=== PATIENT | male | born 1945 | race Caucasian/White ===

== ENCOUNTER 2025-05-13 09:07 | Emergency (ER) | payer MEDICARE, OTHER, SELFPAY ==
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
--- OUTSIDE RECORDS SUMMARY | 2025-05-13 09:19 | XMS_ITS | Clinical Summary ---
Author Organization [facility] Address [address], [facility] [address] [place] [address] Phone Care Team Providers Care Imaging Scheduler Name Role Phone David Tijerina MD Primary Care Provider [phone] Mayur Judge MD Unavailable [phone] Maged Goddard MD Unavailable [phone] Allergies Active Allergy Reactions Criticality Noted Date Comments Atorvastatin Other (see Comments) Low 04/28/2017 Leg aches Simvastatin Unknown Medium Medications HYDROcodone-acetam inophen (NORCO) 5-325 MG TabletIndications: Closed fracture of body of sternum, initial encounter Take 1-2 Tablets by mouth every 4 hours as needed for Moderate or more severe pain. 20 Tablet 09/18/20 23 Active Additional Information Patient not taking.Reported on 04/24/2025 tamsulosin (FLOMAX) 0.4 MG CapsuleIndications :BPH with obstruction/lower urinary tract symptoms TAKE 1 CAPSULE BY MOUTH EVERY DAY IN THE MORNING 90 Capsule 05/20/20 24 Active atorvastatin (LIPITOR) 10 MG TabletIndications: Mixed hyperlipidemia TAKE 1/2 TABLET BY MOUTH DAILY 45 Tablet 3 10/09/20 24 Active levETIRAcetam (KEPPRA) 500 MG Tablet TAKE 1 TABLET BY MOUTH TWICE A DAY 180 Tablet 1 02/22/20 25 Active Active Problems Problem Noted Date Diagnosed Date Seizure 04/24/2025 Insomnia 11/29/2022 Spinal stenosis of lumbar re gion without neurogenic claudication 05/02/2018 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 Arthritis Mixed hyperlipidemia Resolved Problems Problem Noted Date Diagnosed Date Resolved Date Primary osteoarthritis of right knee 08/16/2017 10/26/2017 Encounters Date Type Department Care Team Description 04/28/2025 Telephone [facility] [address] [place] [address] Maged Goddard MD 04/24/2025 11:30 AM CDT Office [facility] [address] [place] [address] Maged Goddard MD Seizure (HCC) (Primary Dx) Discharge Disposition: Discharged to home or Selfcare 04/23/2025 Travel 02/21/2025 Refill [facility] [address] [place] [address] Maged Goddard MD Medication Refill from Last 3 Months Immunizations Immunization Administration Dates Next Due COVID-19, MRNA, LNP-S, BIVAL ENT , PFIZER, 30 MCG/0.3 ML (12+ Y/O) 11/29/2022 Covid-19, Mrna, Lnp-s, Pf, 3 0 Mcg/0.3 Ml Dose (Pfizer) 02/02/2021,01/12/2021 Influenza Vaccine greater than 3 yrs 07/26/2021, 09/02/2019 Influenza Vaccine, Quadrivalent, PF 11/20/2018,0 07/27/2017 Influenza, High-dose, Quadrivalent 09/16/2022, Influenza, Quadrivalent, Adjuvanted 07/26/2023 Influenza, high-dose, trivalent, PF 09/17/2022,0 07/24/2020,08/15/2015 PUR FLU HIGH DOSE (FLUZONE) 08/08/2016 Pneumococcal Vaccine - 13 Valent 04/28/2017 Pneumococcal Vaccine Adult - 23 Valent 8 TD VACCINE 06/06/2009 Family History Medical History Relation Name Comments Cancer Father No Known Problems Mother Relation Name Status Comments Father Mother Social History Tobacco Use Types Packs/Day Years Used Date Smoking Tobacco: Former Cigarettes 0 07/19/1960 - 07/19/1965 Smokeless Tobacco: Never Tobacco Cessation:Counseling Given: Not Answered Alcohol Use Standard Drinks/Week Comments No 0 (1 standard drink = 0.6 oz pur e alcohol) PHQ-2 Answer Date Recorded Total Score - Questions 1-9 0 11/07 Sex and Gender Information Value Date Recorded Sex Assigned at Not on file Legal Sex Male 7:46 PM CDT Gender Identity Not on file Sexual Orientation Not on file Last Filed Vital Signs Vital Sign Reading Time Taken Comments Blood Pressure 142/82 04/24/2025 11:29 AM CDT Pulse 85 04/24/2025 11:29 AM CDT Temperature 36.8 C (98.2 F) 04/24/2025 11:29 AM CDT Respiratory Rate 16 04/24/2025 11:29 AM CDT Oxygen Saturation 96% 04/24/2025 11:29 AM CDT Inhaled Oxygen Concentration - - Weight 98.5 kg (217 lb 3.2 oz) 04/24/2025 11:29 AM CDT Height 188 cm (6' 2) 04/24/2025 11:29 AM CDT Body Mass Index 27.89 04/24/2025 11:29 AM CDT Plan of Treatment Upcoming Encounters Date Type Department Care Team (Late st Contact Info) Description 04/23/2026 9:00 AM CDT Office Visit [facility] - [facility]rology [facility] [address] [place] [address] Maged Goddard MD [address] [place] [address] Health Maintenance Due Date Last Done Comments TdaP Immunization 1944 Zoster Immunization (1 of 2) 1994 Respiratory Syncytial Virus (RSV) Immunization (Adult) (1 - 1-dose 75+ series) 2019 SARS-COV-2 Immunization ( season) 2024 11/29/2022, 02/02/2021, 01/12/2021 Influenza Immunization (#1) 07/07/20252 , 09/17/2022, 09/16/2022, Additional history exists Pneumococcal Immunization (50+ years) Completed 05/08/2018, 04/28/2017 Pneumococcal Immunization Combined Discontinued 05/08/2018, 04/28/2017 Cologuard Discontinued 03/27/2020 Colorectal Cancer Screening Discontinued Hepatitis C Virus (HCV) Screening Completed 07/27/2023 Colonoscopy Discontinued Hepatitis B Immunization Aged Out No longer eligible based on patient's age to complete this topic Human Papillomavirus (HPV) Immunization Aged Out No longer eligible based on patient's age to complete this topic Immunochemical Fecal Occult Blood Discontinued Meningococcal Immunization (ACWY) Aged Out No longer eligible based on patient's age to complete this topic Rotavirus Immunization Aged Out No lo nger eligible based on patient's age to complete this topic Medical Devices Implanted Type Area Tubing Oiler Device Identifier Shelf Expiration Date Model / Serial / Lot Cement Bone Orthoset 1 40 Gm - [id number] Implanted:Qty: 2 on 08/16/2017 by Wilmer Seay MD at [facility] IMPLANT Right: [employer]nee [employer] [id number] / [id number] Patella Recess Sgl Post Hi Adv 9x25mm - [id number] Implanted:Qty: 1 on 08/16/2017 by Wilmer Seay MD at [facility] IMPLANT Right: [employer] 03/01/2025 [id number] / [id number] / [id number] Evolutionmp Fem Cs/Cr Porous - [id number] Implanted:Qty: 1 on 08/16/2017 by Wilmer Seay MD at [facility] IMPLANT Right: [employer]nee [employer] 03/15/2025 [id number] / [id number] / [id number] Evolution Mp Keeled Tibial Base Implanted:Qty: 1 on 08/16/2017 by Wilmer Seay MD at [facility] Right: [employer]nee [employer] 01/28/2024 [id number] / [id number] / [id number] Evolution Mp Sc Insert Implanted:Qty: 1 on 08/16/2017 by Wilmer Seay MD at [facility] Right: [employer]nee [employer] 06/30/2024 [id number] / [id number] / [id number] Orthoset 2 Radiopaque Bone Cement Implanted:Qty: 1 on 08/16/2017 by Wilmer Seay MD at [facility] Right: [employer]nee [employer] [id number] / [id number] / [id number] Procedures Procedure Name Priority Date/Time Associated Diagnosis Comments HEPATITIS C ANTIBODY Routine 07/27/2023 7:52 AM CDT Encounter for hepatitis C screening test for low risk patient COLOGUARD Routine 03/27/2020 7:30 AM CDT Screening for malignant neoplasm of the rectum from Last 3 Months or Most Recently Relevant to Health Maintenance Results * HEPATITIS C ANTIBODY (07/27/2023 7:52 AM CDT) hepatitis C antibody 0.13 <1 S/CO [facility] ARCH [id number] 07/27/2023 9:35 PM CDT [facility] Comment: Signal/Cutoff ratio < 0.79 is Nondetected Signal/Cutoff ratio 0.80-0.99 is Grayzone Signal/Cutoff ratio > 0.99 is Detected Supplemental assays are recommended if signal/cutoff ratio is >/=1.00. Signal/cutoff ratio result >/= 5.00 is 97% predictive of positivity for recombinant immunoblot assay (RIBA) and will be reported to the [place] Department of Public Health as required. Blood Venipuncture / Unknown 07/27/2023 7:52 AM CDT 07/27/2023 7:52 AM CDT us David Tijerina MD CHEMISTRY ORDERABLES Jael lam Result [facility] [address] [place] [address], * COLOGUARD (03/27/2020 7:30 AM CDT) Cologuard Negative Not Applicable [facility] Comment: A negative result indicates a low likelihood that a colorectal cancer (CRC) or an advanced adenoma (adenomatous polyps with more advanced pre-malignant features) is present. The chance that a person with a negative Cologuard test has a colorectal cancer is less than 1 in 1500 (negative predictive value >99.9%) or has an advanced adenoma is less than 5.3% (negative predictive value 94.7%). These data are based on a prospective cross-sectional screening study of 10,000 individuals at average risk for colorectal cancer who were screened with both Cologuard and colonoscopy. (Samantha Ribeiro al, N Engl J Med 2014;370(14):9353-9094) The normal value (reference range) for this assay is negative. COLOGUARD RE-SCREENING RECOMMENDATION: Periodic routine colorectal cancer screening is an important part of preventive healthcare for asymptomatic persons at average risk for colorectal cancer. Following a negative Cologuard result, the [place] Cancer Society and U.S. Multi-Society Task Force screening guidelines recommend a Cologuard re-screening interval of 3 years. References: [place] [employer] Society (ACS). Colorectal cancer prevention and early detection. [place], [place]: [place] [employer] Society; [updated 2015Feb 27]. https://www.cancer.org/cancer/gbyxz-skrbrh-fdurol/yiqpsxvjv-rvgycfosc-fboiayq/ acs-recommendations.html. Accessed July 06, 2018; Adelso DK, Tricia SIMON, Kvng CarrascoK, Colorectal Cancer Screening: Recommendations for Physicians and Patients from the U.S. Multi-Society Task Force on Colorectal Cancer Screening, Am J Gastroenterology 2017; 112:4486-4364. TEST TYPE: Composite algorithmic analysis of stool DNA-biomarkers with hemoglobin immunoassay. Quantitative values of individual biomarkers are not reportable and are not associated with individual biomarker result reference ranges. PRECAUTIONS AND LIMITATIONS: Cologuard is intended for colorectal cancer screening of adults of either sex, 45 years or older, who are at average-risk for colorectal cancer (CRC). Cologuard has been approved for use by the U.S. FDA. Cologuard may produce a false negative or false positive result. A negative Cologuard test result does not guarantee the absence of CRC or advanced adenoma (pre-cancer). Patients with a negative Cologuard test result should be advised to continue participating in a colorectal cancer screening program. The screening interval for Cologuard is currently recommended at an interval of every 3 years by the [place] Cancer Society and U.S. Multi-Society Task Force. A false positive result occurs when Cologuard produces a positive result, even though a colonoscopy may not find colorectal cancer or precancerous polyps. The performance of Cologuard has been established in a cross sectional study (i.e., single point in time) of average-risk adults aged 50-84. Cologuard performance in patients ages 45 to 49 years was estimated by sub-group analysis of near-age groups. Cologuard performance data in a 10,000 patient pivotal study using colonoscopy as the reference method can be accessed at the following location: www.[employer].com/results. Additional description of the Cologuard test process, warnings and precautions can be found at www.cologuardtest.com. Rx only. Stool specimen (specimen) 03/27/2020 7:30 AM CDT 03/28/2020 3:14 PM CDT us David Tijerina MD BODY FLUIDS & STOOLS DESIREE SAHU Final Result [employer], [facility] [address] [place] [address], [facility] [address] [place] [address] from Last 3 Months or Most Recently Relevant to Health Maintenance Insurance MEDICARE [facility] Advance Directives * Full Code (Latest Code Status on File) Date Activated Date Inactivated Comments 08/23/2017 7:24 AM 05/02/2018 10:40 AM Care Teams Imaging Scheduler Relationship Specialty Start Date End Date David Tijerina MD [address] [place] [address] PCP - General Internal Medicine 07/22/15 Mayur Judge MD [address] [place] [address] Consulting Physician Urology 08/08/16 Maged Goddard MD [address] [place] [address] Consulting Physician Neurology 12/30/20
--- OUTSIDE RECORDS SUMMARY | 2025-05-13 09:19 | XMS_ITS | Encounter Summary ---
Author Organization [facility] Address [address] [facility] [place] [address] Phone Care Team Providers Care Classifier Operator Name Role Phone David Tijerina MD Primary Care Provider [phone] Mayur Judge MD Unavailable [phone] Maged Goddard MD Unavailable Reason for Visit * Reason Comments Medication Refill Encounter Details Date Type Department Care Team (Late st Contact Info) Description 02/23/2024 Refill [facility] - Neurology [facility] [address] [place] [address] Maged Goddard MD [address] [place] [address] Medication Refill Social History Tobacco Use Types Packs/Day Years Used Date Smoking Tobacco: Former Cigarettes 0 07/19/1960 - 07/19/1965 Smokeless Tobacco: Never Alcohol Use Standard Drinks/Week Comments No 0 (1 standard drink = 0.6 oz pur e alcohol) PHQ-2 Answer Date Recorded Total Score - Questions 1-9 0 11/07 Sex and Gender Information Value Date Recorded Sex Assigned at Not on file Legal Sex Male 7:46 PM CDT Gender Identity Not on file Sexual Orientation Not on file documented as of this encounter Miscellaneous Notes * Telephone Encounter - Korin Valero RN - 02/23/2024 2:45 PM CDT Medication failed the protocol, provider to review and approve the medication order if appropriate. Requested Prescriptions Pending Prescriptions Disp Refills levETIRAcetam (KEPPRA) 500 MG Tablet [Pharmacy Med Name: LEVETIRACETAM 500 MG TABLET] 180 Tablet Sig: TAKE 1 TABLET BY MOUTH TWICE A DAY Not Delegated - Anticonvulsants Excluding Benzodiazepines Protocol Failed - 02/23/2024 2:33 PM Failed - This refill cannot be delegated Passed - Visit with relevant provider in past 12 months or upcoming 90 days Recent Visits Date Type Provider Dept 12/18/23 Office Visit Maged Goddard MD [facility] 07/26/23 Office Visit David Tijerina MD [facility] Showing recent visits within past 365 days and meeting all other requirements Future Appointments No visits were found meeting these conditions. Showing future appointments within next 90 days and meeting all other requirements documented in this encounter Plan of Treatment Upcoming Encounters Date Type Department Care Team (Late st Contact Info) Description 04/23/2026 9:00 AM CDT Office Visit [facility] - Neurology [facility] [address] [place] [address] Maged Goddard MD [address] [place] [address] documented as of this encounter Visit Diagnoses Not on filedocumented in this encounter Additional Health Concerns Assessment Noted Time PHQ-9 Depression Total Score: 0 12/04/19 21 2:00 PM SSIS SSRS DEVELOPER documented as of this encounter Care Teams Classifier Operator Relationship Specialty Start Date End Date David Tijerina MD [address] [place] [address] PCP - General Internal Medicine 07/22/15 Mayur Judge MD [address] [place] [address] Consulting Physician Urology 08/08/16 Maged Goddard MD [address] [place] [address] Consulting Physician Neurology 12/30/20 documented as of this encounter
--- OUTSIDE RECORDS SUMMARY | 2025-05-13 09:19 | XMS_ITS | Encounter Summary ---
Author Organization [facility] Address [address] [facility] [place] [address] Phone Care Team Providers Care Cdl Program Coordinator Name Role Phone David Tijerina MD Primary Care Provider [phone] Mayur Judge MD Unavailable Maged Goddard MD Unavailable Reason for Visit * Reason Comments Medication Refill Encounter Details Date Type Department Care Team (Late st Contact Info) Description 05/17/2022 Refill [facility] - Primary Care - [place] [address] [place] [address] David Tijerina MD [address] [place] [address] Medication Refill Social History Tobacco Use Types [...] on file documented as of this encounter Plan of Treatment Upcoming Encounters Date Type Department Care Team (Late st Contact Info) Description 04/23/2026 9:00 AM CDT Office Visit [facility] - Neurology [facility] [address] [place] [address] Maged Goddard MD [address] [place] [address] documented as of this encounter Visit Diagnoses Diagnosis Mixed hyperlipidemia documented in this encounter Additional Health Concerns Infection Onset Date Last Indicated Resolved Time COVID - 19 10/07/2022 10/07/2022 10/17/2022 12:1 6 AM POCKET SETTER LOCKSTITCH COVID - 19 Confirmed 10/07/2022 10/07/2022 022 12:16 AM POCKET SETTER LOCKSTITCH Assessment Noted Time PHQ-9 Depression Total Score: 0 12/04/19 21 2:00 PM POCKET SETTER LOCKSTITCH documented as of this encounter Care Teams Cdl Program Coordinator Relationship Specialty Start Date End Date David Tijerina MD [address] [place] [address] PCP - General Internal Medicine 07/22/15 Mayur Judge MD [address] [place] [address] Consulting Physician Urology 08/08/16 Maged Goddard MD [address] [place] [address] Consulting Physician Neurology 12/30/20 documented as of this encounter
[2025-05-13 09:20] VITALS: BP 159/79; PULSE 72; RESP 20; TEMP 36.6; O2SAT 96
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
== END 2025-05-13 10:20 | disposition home or self-care (01) ==
PROVIDERS: PCP Internal Medicine
DX: H61.22 Impacted cerumen, left ear (principal); S39.012A Strain of muscle, fascia and tendon of lower back, initial encounter; V47.5XXA Car driver injured in collision with fixed or stationary object in traffic accident, initial encounter; G40.909 Epilepsy, unspecified, not intractable, without status epilepticus; E78.00 Pure hypercholesterolemia, unspecified
CPT/HCPCS: 69210; 72110; 99213; G0463